=== PATIENT | female | born 1960 | race Caucasian/White ===

== ENCOUNTER 2017-12-26 11:27 | Emergency (ER) | payer BC ==
[2017-12-26 12:29] LABS: BASOPHILS % (AUTO) 0.7 % (0.0-5.0); EOSINOPHILS % (AUTO) 3.5 % (0.0-8.0); HEMATOCRIT 39.2 % (36-48); LYMPHOCYTES % (AUTO) 20.8 % (21.0-51.0); MEAN CORPUSCULAR HGB CONC 34.4 g/dL (32.0-36.0); MEAN CORPUSCULAR VOLUME 87.4 fL (79-99); MONOCYTES % (AUTO) 6.3 % (3.0-13.0); NEUTROPHILS % (AUTO) 68.7 % (40.0-77.0); PLATELET COUNT (AUTO) 193 K/uL (130-400); RED BLOOD CELL COUNT(AUTO) 4.48 MIL/uL (4.00-5.50); RED CELL DISTRIBUTION WIDTH 13.2 % (11.0-15.5); WHITE BLOOD COUNT (AUTO) 9.4 K/uL (4.8-10.8)
[2017-12-26 12:55] LABS: INR 0.93 (0.85-1.15); PARTIAL THROMBOPLASTIN TIME 27.4 SEC (26.3-35.5); PROTHROMBIN TIME 9.8 SEC (9.6-11.6)
[2017-12-26 13:14] LABS: CREATININE 0.8 mg/dL (0.5-1.5); POTASSIUM 3.8 mmol/L (3.5-5.1)
== END 2017-12-26 15:25 | disposition home or self-care (01) ==
LOC: EDH 11:27
DX: M79.89 Other specified soft tissue disorders (principal); M79.605 Pain in left leg; K21.9 Gastro-esophageal reflux disease without esophagitis; M81.0 Age-related osteoporosis without current pathological fracture; Z88.8 Allergy status to other drugs, medicaments and biological substances
CPT/HCPCS: 36415; 80048; 85025; 85610; 85730; 93971

== ENCOUNTER 2019-12-15 02:58 | Emergency (ER) | payer BC ==
[2019-12-15] MEDS ORDERED: METOCLOPRAMIDE 10 MG/2 ML VIAL ONE (03:54)
[2019-12-15] MEDS ORDERED: ONDANSETRON HCL 4 MG/2 ML VIAL ONE (03:55)
[2019-12-15] MEDS ORDERED: KETOROLAC TROMETHAMINE 30MG/ML ONE (03:55)
[2019-12-15] MEDS ORDERED: SODIUM CHLORIDE 0.9% 1000ML 3,000 ML IV ONE (03:56)
[2019-12-15 04:02] LABS: APPEARANCE,URINE Clear (CLEAR); BILIRUBIN,URINE Negative (NEGATIVE); COLOR,URINE Yellow (YELLOW); GLUCOSE, URINE (UA) Negative (NEGATIVE); KETONES,URINE Negative (NEGATIVE); LEUKOCYTE ESTERASE ,URINE Small (NEGATIVE); NITRATE,URINE Negative (NEGATIVE); OCCULT BLOOD,URINE Negative (NEGATIVE); PH,URINE 5.5 (5.0-8.0); PROTEIN,URINE Negative (NEGATIVE); UROBILINOGEN,URINE 0.2 mg/dL (0.2-1.0)
[2019-12-15 04:09] LABS: RBC,URINE None Seen /HPF (0-1)
[2019-12-15 04:10] LABS: BACTERIA,URINE None Seen /HPF (None Seen); SQUAMOUS EPITHELIAL CELL,UR Moderate /HPF (0-2)
[2019-12-15 04:31] LABS: MEAN CORPUSCULAR VOLUME 86.8 fL (79-99); RED BLOOD CELL COUNT(AUTO) 4.38 MIL/uL (4.00-5.50); WHITE BLOOD COUNT (AUTO) 12.4 K/uL (4.8-10.8)
[2019-12-15 04:32] LABS: BASOPHILS % (AUTO) 0.3 % (0.0-5.0); EOSINOPHILS % (AUTO) 1.1 % (0.0-8.0); LYMPHOCYTES % (AUTO) 12.3 % (21.0-51.0); MEAN CORPUSCULAR HEMOGLOBIN 29.7 pg (27.0-33.0); MEAN CORPUSCULAR HGB CONC 34.2 g/dL (32.0-36.0); MONOCYTES % (AUTO) 5.7 % (3.0-13.0); NEUTROPHILS % (AUTO) 80.1 % (40.0-77.0); PLATELET COUNT (AUTO) 175 K/uL (130-400); RED CELL DISTRIBUTION WIDTH 11.9 % (11.0-15.5)
[2019-12-15 04:54] LABS: CREATININE 1.1 mg/dL (0.5-1.5); POTASSIUM 3.8 mmol/L (3.5-5.1)
[2019-12-15 04:58] LABS: ALBUMIN 4.2 g/dL (3.5-5.0); BILIRUBIN,TOTAL 0.4 mg/dL (0.2-1.0); TOTAL PROTEIN, SERUM 7.5 g/dL (6.0-8.3)
[2019-12-15] MEDS ORDERED: TAMSULOSIN HCL 0.4 MG CAP.ER.24H ONE (06:06)
== END 2019-12-15 06:52 | disposition home or self-care (01) ==
LOC: EDH 02:58
DX: N20.1 Calculus of ureter (principal); N23 Unspecified renal colic; R11.2 Nausea with vomiting, unspecified; K21.9 Gastro-esophageal reflux disease without esophagitis; Z90.710 Acquired absence of both cervix and uterus; Z90.89 Acquired absence of other organs; Z90.49 Acquired absence of other specified parts of digestive tract; Z88.7 Allergy status to serum and vaccine
CPT/HCPCS: 36415; 74176; 80053; 81001; 83690; 85025; 96361; 96374; 96375; 99284; J1885; J2405; J2765; J7030

== ENCOUNTER → 2024-12-15 | Outpatient (CLI) | payer BC, OTHER ==
[2024-12-15 22:33] VITALS: PULSE 80; RESP 12
[2024-12-15 23:06] VITALS: PULSE 81; RESP 16
--- NOTE | 2024-12-15 23:34 | NUR ---
CURRENT MEDICATION LIST: METFORMIN 1000MG BID, ROPINIROLE 4MG HS, OMEPRAZOLE 40 MG , ROSUVASTATIN 5MG DAILY, FAMOTIDINE 40 MG HS, CALCIUM GUMMY, OSTEOBIFLEX, MULTIVIT GUMMY, NOPAL CACTUS 1000 MG Addendum: 12/15/24 at 2339 by NOMAN ZEELT Amended: Links added.
[2024-12-15 23:39] VITALS: PULSE 80; RESP 18
[2024-12-16] VITALS (11 sets, daily range): PULSE 65–81; RESP 14–18
== END | disposition home or self-care (01) ==
LOC: SLP 20:33
PROVIDERS: ATTEND Internal Medicine
DX: G47.30 Sleep apnea, unspecified (principal); R06.83 Snoring
CPT/HCPCS: 95810

== ENCOUNTER → 2025-01-05 | Outpatient (CLI) | payer BC, OTHER ==
[2025-01-05 22:10] VITALS: PULSE 79; RESP 18
[2025-01-05 22:56] VITALS: PULSE 74; RESP 16
[2025-01-05 23:05] VITALS: PULSE 70; RESP 19
[2025-01-05 23:13] VITALS: PULSE 70; RESP 19
[2025-01-05 23:40] VITALS: PULSE 70; RESP 19
[2025-01-05 23:53] VITALS: PULSE 63; RESP 24
[2025-01-06] VITALS (12 sets, daily range): PULSE 62–73; RESP 11–20
== END | disposition home or self-care (01) ==
LOC: SLP 20:27
PROVIDERS: ATTEND Internal Medicine
DX: G47.33 Obstructive sleep apnea (adult) (pediatric) (principal); R06.83 Snoring
CPT/HCPCS: 95811